=== PATIENT | male | born 1950 | race Caucasian/White ===

== ENCOUNTER → 2020-12-01 | Outpatient (CLI) | payer MEDICARE ==
[~2020-12-01] MED LIST: AMLO-211 PO; ASCO100018 PO; ASPI81TA45 PO; ATOR20TA37 PO; FISH1CAP PO; LOSA100T14 PO; MULT1TAB13 PO; SPIR25TA5 PO; TERA5CAP3 PO; VITA1TAB19 PO
[2020-12-01 10:32] LABS: BASOPHILS % (AUTO) 0 % (0-1); EOSINOPHILS % (AUTO) 1 % (1-7); LYMPHOCYTES % (AUTO) 16 % (22-44); MEAN CORPUSCULAR HEMOGLOBIN 32.8 pg (27.5-34.5); MEAN CORPUSCULAR HGB CONC 33.8 g/dL (33.2-36.2); MEAN PLATELET VOLUME 7.4 fL (7.4-10.4); MONOCYTES % (AUTO) 10 % (2-9); NEUTROPHILS % (AUTO) 72 % (42-75); PLATELET COUNT 330 x10^3/uL (130-400); RED BLOOD COUNT 3.99 x10^6/uL (4.38-5.82); RED CELL DISTRIBUTION WIDTH 13.1 % (9.4-14.8)
[2020-12-01 10:33] LABS: MD NO
[2020-12-01 10:48] LABS: ALANINE AMINOTRANSFERASE 25 U/L (12-78); ALBUMIN 3.7 g/dL (3.4-5.0); ANION GAP 8 mmol/L (5-15); CHLORIDE 105 mmol/L (98-107)
[2020-12-01 10:51] LABS: ALKALINE PHOSPHATASE 88 U/L (45-117); BILIRUBIN,TOTAL 1.2 mg/dL (0.2-1.0); CREATININE 1.92 mg/dL (0.7-1.3); TOTAL PROTEIN 7.8 g/dL (6.4-8.2)
[2020-12-01 11:05] LABS: MICROSCOPIC NOT IND
[2020-12-01 11:18] LABS: INTERNATIONAL NORMALIZED RATIO 0.99 (0.93-1.1); PROTHROMBIN TIME 10.6 Seconds (9.6-11.5)
== END | disposition home or self-care (01) ==
LOC: STAR 09:07
PROVIDERS: ATTEND Urology
DX: Z01.818 Encounter for other preprocedural examination (principal); N20.0 Calculus of kidney; Z20.822 Contact with and (suspected) exposure to COVID-19
CPT/HCPCS: 80053; 81003; 85025; 85610; 87635; 93005

== ENCOUNTER 2020-12-07 13:01 | Inpatient (IN) | payer MEDICARE, OTHER ==
[~2020-12-07] VITALS: Ht 190.5 cm; Wt 176.0 kg
[2020-12-07] MEDS ORDERED: CHLORHEXIDINE 15 ML UDC MM ONE (13:13)
[2020-12-07] MEDS ORDERED: PROMETHAZINE 25 MG/ML, 1ML IVPush PRN (13:30)
[2020-12-07] MEDS ORDERED: ONDANSETRON 2MG/ML, 2ML IVPush PRN (13:30)
[2020-12-07] MEDS ORDERED: LACTATED RINGERS 1,000 ML IV SCH (13:30)
[2020-12-07] MEDS ORDERED: HYDROmorphone 1 MG/ML, 1ML INJ IVPush PRN (13:30)
[2020-12-07] MEDS ORDERED: FENTANYL PF 100 MCG/2ML IV PRN (13:30)
[2020-12-07] MEDS ORDERED: HYDROcodone/APAP 7.5-325MG/15ML UDC PO PRN (13:30)
[2020-12-07] MEDS ORDERED: OXYcodone 5 MG/5 ML ORAL.SOL UDC PO PRN (13:30)
[2020-12-07] MEDS ORDERED: MEPERIDINE/PF 25MG/0.5ML IVPush PRN (13:30)
[2020-12-07] MEDS ORDERED: FENTANYL PF 100 MCG/2ML ONE ×2 (14:22→16:25)
[2020-12-07] MEDS ORDERED: LORazepam 2 MG/ML, 1ML ONE (16:23)
[2020-12-07] MEDS ORDERED: LORazepam 2 MG/ML, 1ML IVPush ONE (16:30)
[2020-12-07] MEDS ORDERED: OPIUM/BELLADONNA SUPP.RECT 16.2-30 MG PR PRN (18:30)
[2020-12-07] MEDS ORDERED: HYDROcodone/APAP 5/325 TABLET PO PRN (19:00)
[2020-12-07] MEDS ORDERED: ATORVASTATIN 20 MG TABLET PO SCH (21:00)
[2020-12-07 21:15] VITALS: BP 135/87
[2020-12-07] MEDS: SPIRONOLACTONE 25 MG TABLET PO SCH (21:31)
[2020-12-07] MEDS: LACTATED RINGERS 1,000 ML IV SCH (23:16)
[2020-12-07] MEDS: HEPARIN 5,000 UNITS/ML, 1ML SQ SCH (23:17)
[2020-12-08 00:14] VITALS: BP 137/62
[2020-12-08 04:18] VITALS: BP 147/73
[2020-12-08] MEDS ORDERED: ASPIRIN 81 MG TABLET EC PO SCH (06:00)
[2020-12-08 06:58] VITALS: BP 151/85
[2020-12-08] MEDS: SPIRONOLACTONE 25 MG TABLET PO SCH (07:46)
[2020-12-08] MEDS: HEPARIN 5,000 UNITS/ML, 1ML SQ SCH (07:47)
[2020-12-08] MEDS ORDERED: LOSARTAN 100 MG TAB PO SCH (09:00)
[2020-12-08] MEDS ORDERED: MULTIVITAMINS/MINERALS TABLET PO SCH (09:00)
[2020-12-08] MEDS ORDERED: TERAZOSIN 5MG CAPSULE PO SCH (09:00)
[2020-12-08] MEDS ORDERED: MULTIVITS,STRESS FORMULA 1 TABLET PO SCH (09:00)
[2020-12-08] MEDS ORDERED: AMLODIPINE 10 MG TAB PO SCH (09:00)
[2020-12-08] MEDS ORDERED: OMEGA-3/FISH OIL CAPSULE PO SCH (09:00)
[2020-12-08] MEDS ORDERED: ASCORBIC ACID 500 MG TABLET PO SCH (09:00)
[2020-12-08] MEDS: LACTATED RINGERS 1,000 ML IV SCH (11:30)
[2020-12-08 11:45] VITALS: BP 142/81
== END 2020-12-08 13:10 | disposition home or self-care (01) | DRG 660 ==
LOC: OUT 13:01 → 4NE 17:50 → OUT 18:00 → DCLOUNGE 12-08 13:00
PROVIDERS: ADMIT Urology; ATTEND Urology
PROC: 0TC78ZZ Extirpation of Matter from Left Ureter, Via Natural or Artificial Opening Endoscopic (ICD-10-PCS; principal; 2020-12-08)
PROC: 0T778DZ Dilation of Left Ureter with Intraluminal Device, Via Natural or Artificial Opening Endoscopic (ICD-10-PCS; 2020-12-08)
DX: N20.2 Calculus of kidney with calculus of ureter (principal); Z68.42 Body mass index [BMI] 45.0-49.9, adult; E66.01 Morbid (severe) obesity due to excess calories; Z87.442 Personal history of urinary calculi; Z79.899 Other long term (current) drug therapy
CPT/HCPCS: G0378; J1644; J3010; C1758; C1769; J2060; J7120